=== PATIENT | male | born 2000 | race Caucasian/White ===

== ENCOUNTER 2020-03-11 14:17 | Emergency (ER) | payer OTHER ==
[~2020-03-11] VITALS: Ht 167.6 cm; Wt 79.4 kg
[2020-03-11] MEDS ORDERED: Ketorolac 30mg Inj IM ONE (14:45)
[2020-03-11] MEDS ORDERED: Methocarbamol 750mg tab ORAL ONE (14:45)
[2020-03-11 14:58] VITALS: BP 121/75
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
[2020-03-11] MEDS ORDERED: IBUPROFEN600 M1 ORAL (16:13)
[2020-03-11] MEDS ORDERED: ROBAXIN-500MG ORAL (16:13)
[2020-03-11] MEDS ORDERED: LIDODERM700 M1 TOPIC (16:13)
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
[2020-03-11 16:20] VITALS: BP 121/75
--- NOTE | 2020-03-11 16:20 | NUR ---
ER DISCHARGE NOTE: Patient is cleared to be discharged per ERMD, pt is aox4, on room air, with stable vital signs. pt was given dc and prescription instructions, pt was able to verbalize understanding, pt id band and iv site removed without complications. pt is able to ambulate with steady gait. pt took all belongings.
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
== END 2020-03-11 16:39 | disposition home or self-care (01) ==
LOC: EMR 14:42
DX: S39.012A Strain of muscle, fascia and tendon of lower back, initial encounter (principal); S16.1XXA Strain of muscle, fascia and tendon at neck level, initial encounter; S50.11XA Contusion of right forearm, initial encounter; S80.01XA Contusion of right knee, initial encounter; V43.62XA Car passenger injured in collision with other type car in traffic accident, initial encounter; Y92.9 Unspecified place or not applicable
CPT/HCPCS: 72020; 72040; 99284